=== PATIENT | female | born 1995 | race Caucasian/White ===

== ENCOUNTER 2024-02-24 18:10 | Emergency (ER) | payer BC ==
[~2024-02-24] VITALS: Ht 154.9 cm; Wt 81.6 kg
[2024-02-24 18:17] VITALS: BP 114/69; PULSE 82; RESP 18; TEMP 98.4; O2SAT 100
[2024-02-24 20:00] LABS: APPEARANCE,URINE CLEAR (CLEAR); BILIRUBIN,URINE NEGATIVE (NEGATIVE); BLOOD, URINE 3+ (NEGATIVE); COLOR,URINE YELLOW (YELLOW); LEUKOCYTE ESTERASE ,URINE NEGATIVE (NEGATIVE); NITRITE, URINE NEGATIVE (NEGATIVE); PROTEIN,URINE NEGATIVE (NEGATIVE); UGLUCOSE NEGATIVE (NEGATIVE); UROBILINOGEN,URINE 0.2 EU/dL (0.2 - 1)
[2024-02-24 20:13] LABS: BACTERIA,URINE FEW /HPF (None Seen); SQUAMOUS EPITHELIAL CELL,UR 4-10 (MOD) /LPF (0-3 (FEW)); WBC,URINE 0-5 /HPF (0-5)
[2024-02-24 21:55] VITALS: BP 114/69; PULSE 82; RESP 18; TEMP 98.4; O2SAT 100
== END 2024-02-24 22:04 | disposition home or self-care (01) ==
LOC: MED 18:10
DX: N76.0 Acute vaginitis (principal); Z88.6 Allergy status to analgesic agent
CPT/HCPCS: 81001; 81025; 87210; 87491; 99284